=== PATIENT | male | born 1935 | race Caucasian/White ===

== ENCOUNTER 2016-11-25 11:41 | Inpatient (IN) | payer OTHER ==
--- NOTE | 2016-11-25 11:49 | CPEKG ---
Heart Rate: 59 RR Interval: 1017 P-R Interval: 228 QRSD Interval: 122 QT Interval: 436 QTC Interval: 432 P [place]: 41 QRS [place]: -63 T Wave [place]: 77 EKG Severity - ABNORMAL ECG - EKG Impression: SINUS RHYTHM EKG Impression: FIRST DEGREE AV BLOCK EKG Impression: NONSPECIFIC IVCD WITH LAD EKG Impression: LVH WITH SECONDARY REPOLARIZATION ABNORMALITY Electronically Signed By: Oumar Wall 25-Nov-2016 12:58:21
[2016-11-25] MEDS ORDERED: NS 1,000 ML IV ONE (11:52)
[2016-11-25] MEDS ORDERED: ASPIRIN 81 MG CHEWABLE TAB PO ONE (11:52)
[2016-11-25] MEDS ORDERED: ASPIRIN 81 MG CHEWABLE TAB ONE (11:53)
[2016-11-25] MEDS ORDERED: NITROGLYCERIN 0.4 MG BTL SL ONE ×2 (11:53→12:00)
[2016-11-25] MEDS ORDERED: METOPROLOL TARTRATE 5 MG/5 ML INJ IVP ONE (11:56)
[2016-11-25] MEDS ORDERED: METOPROLOL TARTRATE 5 MG/5 ML INJ ONE (11:57)
[2016-11-25 12:01] LABS: % IMMATURE GRANULYOCYTES 0.7 % (0.0-1.1); ABSOLUTE IMMATURE GRANULOCYTES 0.04 10^3/uL (0.00-0.10); ADD DIFF? NO; ADD MORPH? NO; ADD SCAN? NO; ATYPICAL LYMPHOCYTE FLAG 0 (0-99); FRAGMENT RBC FLAG 0 (0-99); HEMATOCRIT 47.6 % (40.0-51.0); HEMOGLOBIN 16.8 g/dL (13.7-17.5); LEFT SHIFT FLG 0 (0-99); LIPEMIA HEMOLYSIS FLAG 90 (0-99); MEAN CELL HEMOGLOBIN 32.2 pg (27.9-34.1); MEAN CELL HEMOGLOBIN CONCENTR. 35.3 g/dL (32.4-36.7); MEAN CELL VOLUME 91.4 fL (81.5-99.8); MEAN PLATELET VOLUME 9.6 fL (8.7-11.7); PLATELET CLUMPS FLAG 0 (0-99); PLATELET COUNT 187 10^3/uL (150-400); RED BLOOD CELL COUNT 5.21 10^6/uL (4.40-6.38)
[2016-11-25 12:12] LABS: APTT 25.6 SEC (23.0-38.0); INR 1.1 (0.83-1.16); PROTIME(PATIENT) 13.9 SEC (12.0-15.0)
[2016-11-25 12:13] LABS: ANION GAP 16 mEq/L (8-16); CALCIUM 9.6 mg/dL (8.5-10.4); CARBON DIOXIDE 21 mEq/l (22-31); CHLORIDE 105 mEq/L (97-110); CREATININE 1.2 mg/dL (0.7-1.3); GLOMERULAR FILTRATION RATE 58; GLUCOSE 96 mg/dL (70-100); SODIUM 142 mEq/L (134-144)
[2016-11-25] MEDS: NITROGLYCERIN 0.4 MG BTL SL PRN ×2 (12:15→12:18)
[2016-11-25] MEDS ORDERED: NITROGLYCERIN 2% 1 GM PACKET TP ONE (12:24)
[2016-11-25] MEDS ORDERED: NITROGLYCERIN 0.4 MG BTL SL PRN ×3 (12:24→17:05)
[2016-11-25 12:26] LABS: TROPONIN I < 0.012 ng/mL (0-0.034)
--- NOTE | 2016-11-25 12:41 | UCPHY ---
H & P Patient Type: Established Chief Complaint Nursing Narrative: 1 wk of Lt arm pain - last night dizzyness/ SOB - drove down from [facility] Time Seen by Provider: 11/25/16 11:45 HPI/ROS: This patient complains of left arm discomfort describes achy in nature intermittently over the past week fleeting episodes last for few minutes with no clear exacerbating factors. However last night he reports onset of study left arm pain that persists since early in the evening again with no exacerbating factors. He reports associated dizzy spells that he describes as lightheaded. He reports that this arm pain is similar to his pain prior to cardiac stent in 2002 with Jeff Wall. Since that time he has not had any significant cardiac symptoms until now. Denies any other associated symptoms with this episode. Currently he has 3/10 achy left arm pain ROS: No fevers or chills. No other constitutional symptoms HEENT: No complaints pulmonary: No shortness of breath no cough. Cardiovascular: He denies any heart palpitations. Currently not feeling lightheaded. No lower extremity swelling. No associated back pain or chest pain. GI: No nausea vomiting. Endocrine: No diaphoresis. : No complaints. 10 point ROS is otherwise negative. Source: Patient Exam Limitations: No limitations - Personal History Current Tetanus Diphtheria and Acellular Pertussis (TDAP): Yes - Medical/Surgical History Hx Asthma: No Hx Chronic Respiratory Disease: No Hx Diabetes: No Hx Cardiac Disease: Yes Hx Renal Disease: No Hx Cirrhosis: No Hx Alcoholism: No Hx HIV/AIDS: No Hx Splenectomy or Spleen Trauma: No Other PMH: PMH: HTN, high cholesterol,. PSH: cardiac stent 2002, upper aortic replacement 2004, - Family History Significant Family History: No pertinent family hx - Social History Smoking Status: Never smoked Alcohol Use: Occasionally Drug Use: None - Physical Exam Exam: General Appearance: Pleasant 81-year-old male appears younger than his stated age. Alert, no distress. Eyes: Pupils equal and round no pallor or injection. ENT, Mouth: Mucous membranes moist. Respiratory: There are no retractions, lungs are clear to auscultation. Cardiovascular: Regular rate and rhythm. No murmur gallop rub. No JVD no peripheral edema. He has midline sternotomy scar that is clean dry intact. Gastrointestinal: Abdomen is soft and nontender, no masses, bowel sounds normal. Neurological: Alert with no focal deficits. Skin: Warm and dry, no rashes. Musculoskeletal: Neck is supple nontender. Extremities are symmetrical, full range of motion. Psychiatric: Mood and affect are normal DIFFERENTIAL DIAGNOSIS: After history and physical exam differential diagnosis was considered for coronary syndrome, IL, your dissection, PE, GERD, musculoskeletal source of pain Constitutional: Initial Vital Signs Temperature (C) 37.2 C 11/25/16 11:49 Heart Rate 58 L 11/25/16 11:49 Respiratory Rate 18 11/25/16 11:49 Blood Pressure 163/89 H 11/25/16 11:49 O2 Sat (%) 97 11/25/16 11:49 O2 Delivery Mode Nasal Cannula O2 (L/minute) 2 Allergies/Adverse Reactions: No Known Allergies Allergy (Unverified 06/04/13 12:22) Home Medications: Medication Instructions Recorded Aspirin [Aspirin 81mg (*)] 81 mg PO DAILY 11/25/16 Losartan/Hydrochlorothiazide 1 each PO DAILY 11/25/16 [Hyzaar 100-12.5 Tablet] Multivitamins [Multivitamin (*)] 1 each PO DAILY 11/25/16 [place]-3 Fatty Acids [Fish Oil 1000 1,000 mg PO DAILY 11/25/16 mg (*)] Simvastatin [Zocor] 40 mg PO HS 11/25/16 Carvedilol [Coreg (*)] 6.25 mg PO BIDMEAL #60 tab 11/26/16 Prasugrel HCl [Effient 10mg (*)] 10 mg PO DAILY #30 tab 11/26/16 Medical Decision Making - Diagnostics EKG Interpretation: 12 lead EKG performed at 11:47 a.m. shortly after arrival indication anginal equivalent Sinus rhythm 59 First-degree AV block Acute ST abnormalities. Overall assessment sinus rhythm first-degree AV block LVH no significant interval change when compared to an EKG dated December 30, 2015 for complete read please refer to trace master 2nd EKG performed at 12:28 p.m. indication nitroglycerin with relief of anginal equivalent rule out interval change sinus rhythm at 77 Overall assessment: no acute interval change from initial EKG by my interpretation please refer to trace master for complete Imaging Results: AP portable chest x-ray: Negative for acute abnormalities by my interpretation. Mediastinum appears grossly normal Imaging: I viewed and interpreted images myself ED Course/Re-evaluation: IV, monitor, aspirin 324 Supple nitroglycerin 1 Q 5 minutes x3 with resolution of his left arm pain 0.5 inch nitropaste Single dose of Lopressor IV with mild bradycardia in the 50s. Subsequent doses held due to this. Discussed case with Nehal with [facility]. She requests that we hold on blood thinner on this patient admit to the hospitalist. he will consult for further workup and treatment. Spoke with the [id number] provider with the hospital service accepts patient for admission to Dr. Jenkins Discussion: Patient with history of known coronary artery disease and stent presents with anginal equivalent with relief from nitroglycerin here stable vital signs negative initial troponin warranting admission for further workup and treatment. Patient is pain-free and comfortable at 12:45 p.m. awaiting transfer to the hospital PCU - Data Points Laboratory Results: Laboratory Results 11/25/16 11:57 11/25/16 11:57 Medications Given: Discontinued Medications Aspirin (Aspirin) 324 mg PO EDNOW ONE Stop: 11/25/16 11:53 Last Admin: 11/25/16 11:57 Dose: 324 mg Aspirin Buffered (Aspirin Ec) 325 mg PO ONCALL ONE Stop: 11/25/16 15:04 Last Admin: 11/25/16 18:44 Dose: Not Given Aspirin Buffered (Aspirin Ec) 325 mg PO DAILY [facility] Stop: 05/25/17 08:59 Last Admin: 11/26/16 09:18 Dose: 325 mg Atorvastatin Calcium (Lipitor) 40 mg PO DAILY [facility] Stop: 05/25/17 08:59 Last Admin: 11/26/16 09:18 Dose: 40 mg Carvedilol (Coreg) 12.5 mg PO BIDMEAL [facility] Stop: 05/25/17 07:59 Last Admin: 11/26/16 09:17 Dose: 12.5 mg Diazepam (Valium) 5 mg PO ONCALL ONE Stop: 11/25/16 15:04 Last Admin: 11/25/16 18:44 Dose: Not Given Diphenhydramine HCl (Benadryl) 25 mg PO ONCALL ONE Stop: 11/25/16 15:04 Last Admin: 11/25/16 18:44 Dose: Not Given Enoxaparin Sodium (Lovenox) 40 mg SC DAILY KIKE Stop: 05/25/17 08:59 Last Admin: 11/26/16 09:18 Dose: 40 mg HCTZ/Losartan Potassium (Hyzaar 50/12.5) 1 tab PO DAILY KIKE Stop: 05/25/17 08:59 Last Admin: 11/26/16 09:17 Dose: 1 tab Losartan Potassium (Cozaar) 50 mg PO DAILY KIKE Stop: 05/25/17 08:59 Last Admin: 11/26/16 09:17 Dose: 50 mg Metoprolol Tartrate (Lopressor Injection) 5 mg IVP EDNOW ONE Stop: 11/25/16 11:57 Last Admin: 11/25/16 12:17 Dose: 3 mg Multivitamins (Tab-A-Mariam) 1 each PO DAILY KIKE Stop: 05/25/17 08:59 Last Admin: 11/26/16 09:17 Dose: 1 each Nitroglycerin (Nitrostat) 0.4 mg SL EDNOW ONE Stop: 11/25/16 12:01 Last Admin: 11/25/16 11:55 Dose: 1 tab Nitroglycerin (Nitrostat) 0.4 mg SL Q5M PRN PRN Reason: Chest Pain Stop: 11/25/16 12:19 Last Admin: 11/25/16 12:18 Dose: 0.4 mg Nitroglycerin (Nitro-Bid 2%) 0.5 inch TP EDNOW ONE Stop: 11/25/16 12:25 Last Admin: 11/25/16 12:28 Dose: 0.5 inch Nitroglycerin (Nitrostat) 0.4 mg SL EDNOW PRN PRN Reason: Chest Pain Stop: 11/27/16 12:25 Last Admin: 11/25/16 12:27 Dose: 0.4 mg [id number]-[id number] Ethyl Esters (Fish Oil) 1,000 mg PO DAILY KIKE Stop: 05/25/17 08:59 Last Admin: 11/26/16 09:18 Dose: 1,000 mg Potassium Chloride (Klor-Con) 10 - 40 meq PO ONCE ONE PRN Reason: Protocol Stop: 11/26/16 12:52 Last Admin: 11/26/16 13:28 Dose: 30 meq Prasugrel (Effient) 10 mg PO DAILY KIKE Stop: 05/25/17 08:59 Last Admin: 11/26/16 09:18 Dose: 10 mg Prasugrel (Effient) 60 mg PO ONCE ONE Stop: 11/25/16 17:15 Last Admin: 11/25/16 18:44 Dose: Not Given Departure - Departure Disposition: [facility] Inpatient Acute Clinical Impression: Unstable angina Condition: Fair - PQRS PQRS Measurement: 134: Depression screening and followup, PRIME MD-PHQ2 (12 years and older) Over the last 2 weeks, how often have you been bothered by any of the following problems? 1. Feeling down, depressed, or hopeless? 2. Little interest or pleasure in doing things? Patient answered no to both 1 and 2 130: Documentation of medications. Reviewed all patient medications, doses, route and frequency. 226: Do you smoke? [No.] 47: 65 and older: Advanced care planning. Patient does not have a surrogate decision maker. He is full code 51: 18 years old and older with diagnosis of COPD, spirometry performance. NA 52: 18 years old and older with COPD and symptoms of COPD or FEV1<60% predicted prescribed a B Agonist. NA
--- NOTE | 2016-11-25 12:47 | CPEKG ---
Heart Rate: 77 RR Interval: 779 P-R Interval: 240 QRSD Interval: 120 QT Interval: 404 QTC Interval: 458 P [place]: 43 QRS [place]: -66 T Wave [place]: 91 EKG Severity - ABNORMAL ECG - EKG Impression: SINUS RHYTHM EKG Impression: VENTRICULAR PREMATURE COMPLEX EKG Impression: FIRST DEGREE AV BLOCK EKG Impression: INCOMPLETE LEFT BUNDLE BRANCH BLOCK EKG Impression: PROBABLE LEFT VENTRICULAR HYPERTROPHY Electronically Signed By: Oumar Wall 25-Nov-2016 12:58:12
[2016-11-25] MEDS ORDERED: DIAZEPAM 5 MG TAB PO ONE (15:03)
[2016-11-25] MEDS ORDERED: ASPIRIN EC 325 MG TAB PO ONE (15:03)
[2016-11-25] MEDS ORDERED: TEMAZEPAM 15 MG CAP PO PRN (15:03)
[2016-11-25] MEDS ORDERED: ACETAMINOPHEN 325 MG TAB PO PRN (15:03)
[2016-11-25] MEDS ORDERED: diphenhydrAMINE 25 MG CAP PO ONE (15:03)
[2016-11-25] MEDS ORDERED: MIDAZOLAM 2 MG/2 ML VIAL ONE ×2 (15:14→16:29)
[2016-11-25] MEDS ORDERED: IOPAMIDOL (ISOVUE-370) 150 ML BTL IV ONE ×3 (15:14→16:32)
[2016-11-25] MEDS ORDERED: LIDOCAINE 1% 30 ML SDV ONE (15:14)
[2016-11-25] MEDS ORDERED: fentaNYL 100 MCG/2 ML INJ ONE ×2 (15:14→16:29)
[2016-11-25] MEDS ORDERED: FAMOTIDINE 20 MG TAB ONE (15:27)
[2016-11-25] MEDS ORDERED: BIVALIRUDIN 250 MG/5 ML VIAL IV ONE (16:05)
[2016-11-25] MEDS ORDERED: NITROGLYCERIN 1,500 MCG/15 ML VIAL MISC ONE (16:05)
[2016-11-25] MEDS ORDERED: HEPARIN 10,000 UNIT/10 ML MDV ONE (16:13)
--- NOTE | 2016-11-25 16:14 | GCON ---
[f rep st] CONSULTATION CARDIOLOGY CONSULTATION. HISTORY OF PRESENT ILLNESS: The patient was admitted to the hospital with left arm pain. He has been active, doing the things he always does. He has been getting discomfort for a month intermittently. It is on and off all day long for this month. It is 5/10 when it is bad. It stops on its own. Resting may help it a little bit. Stress may make it worse. It is very similar to the left arm discomfort that he had prior to his stent in 2002. At that time, however, his symptoms when I investigated further were more bilateral, and this time it is on the left side only. It is not worse with position or time of day or food. He has not been feeling particularly well. He has been, at times, very active, and this pain has not gotten worse so the story is a little bit confusing. He did say that he was also dizzy yesterday. This discomfort can also happen at night when he is at rest. He has a history of coronary artery disease. CARDIAC RISK FACTORS: His cardiac risk factors are positive for hypertension, for hyperlipidemia, for known coronary disease with a stent years ago, and for a family history of premature coronary disease. Cardiac risk factors are negative for any recent smoking, for hyperuricemia, for known myocardial infarction or diabetes mellitus. His vascular disease history also includes an aortic aneurysm repair by Dr. Harrison Lockwood in 2004. He has no history of orthopnea, PND, dyspnea on exertion. He has no peripheral edema, no early satiety. No significant weight gain. He is a very active gentleman and takes good care of himself. He does not have a history of dysuria, frequency, pyuria. He has no hemoptysis. No trauma to the head, neck, or chest. He has no rashes, fevers, or chills. No lightheadedness or dizziness. No focal neurologic deficits. He has been taking his medications. His appetite has been good. MEDICATIONS: Aspirin, carvedilol, losartan, multivitamins, simvastatin. ALLERGIES: None. SURGICAL HISTORY: He had an upper aortic root replacement in 2004. REVIEW OF SYSTEMS: A 15-point review of systems negative except as noted above. SOCIAL HISTORY: He was born in [place], [place]. 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 He has been in [place] since 1996. He lives alone. His a year and a half ago. He has 6 children all over the place. He is very active. He does treadmill, pushups, sit-ups. He does not smoke. Does not drink significant amounts of alcohol. PHYSICAL EXAMINATION: VITAL SIGNS: His blood pressure is 140/75, respiratory rate is 12. He is sitting comfortably in a hospital bed with a heart rate of 58. He is afebrile. HEENT: Pupils are equal, round, and reactive. Mucous membranes and mouth moist. NECK: Supple. CARDIOVASCULAR: S1, S2. Soft systolic murmur left sternal border. No diastolic murmur. No S3, S4. No rubs. LUNGS: Rhonchi bilaterally. No rales, wheezing, or dullness. ABDOMEN: Soft, nontender, without masses. EXTREMITIES: No edema, inflammation, or ulceration. SKIN: Reveals age-related changes. CVA: No tenderness. PSYCH: No obvious anxiety or depression. NEURO: 2-12 grossly normal. Motor and sensory intact. EKG shows left bundle-branch block, first-degree block, PVCs. LABS: Show white count 6.0, hematocrit is 47, platelets 187. He has a high neutrophil count. Sodium 142, potassium 4.0, chloride 105, CO2 of 21, BUN 34, creatinine 1.2. BNP 240. Troponin 0.012. ASSESSMENT AND PLAN: 1. Coronary artery disease. The patient has had coronary artery disease with stenting in 2002. He has severe vascular disease. He has dyslipidemia. He is hypertensive. He has symptoms similar to what he had prior to his stenting. At that time, he had bilateral arm pain. Now he has only 1-sided arm pain, and the story is not typical for angina and is not clearly worse with exertion. Does not clearly just go away with rest, so it may well be musculoskeletal. I do not believe it is related to his aneurysm or his aneurysm repair. However, we cannot be sure it is not coronary artery disease. I talked to him about nuclear imaging studies if he developed no elevated troponins and his EKG was unchanged from the past as well as the current one we have. He understands the options on this and wants to proceed directly to coronary angiography. We will do this angiogram and proceed from there. We reviewed prevention. He has severe coronary artery disease and may well need very significant intervention. 2. Ascending aortic aneurysm. He has had an ascending aortic aneurysm repaired by Dr. Lockwood according to him. We will check his aorta while we are doing the study depending on how the study goes and what we find. 3. Hyperlipidemia. 4. Hypertension. 5. Family history of premature coronary disease. He has many risk factors that would accelerate his getting coronary artery disease at a young age. We have reviewed prevention. At this time, we will do a coronary angiogram. If this study is negative, we will ponder what other causes might be giving him this problem of his arm discomfort. It certainly could be musculoskeletal, and that would be the most common possible etiology for what he has. There is nothing to suggest pulmonary embolic disease. His pulses are full and equal. There is nothing to suggest significant aortic disease right at this time. There is nothing to suggest other significant pulmonary or GI pathology right now. All of his questions have been answered. I have talked to the hospitalist about this case, and we will proceed to angiography. /[id number]/MODL MTDD
[2016-11-25] MEDS ORDERED: ATROPINE SULFATE 1 MG/10 ML SYR IVP PRN (17:05)
[2016-11-25] MEDS ORDERED: ONDANSETRON 4 MG/2 ML VIAL IVP PRN (17:05)
[2016-11-25] MEDS ORDERED: HYDROCODONE/APAP 5/325 TAB PO PRN (17:05)
[2016-11-25] MEDS ORDERED: OXYCODONE/APAP 5/325 TAB PO PRN (17:05)
[2016-11-25] MEDS ORDERED: PRASUGREL HCL 10 MG TAB ONE (17:06)
[2016-11-25] MEDS ORDERED: PRASUGREL HCL 10 MG TAB PO ONE (17:14)
--- NOTE | 2016-11-25 17:14 | PDCTREPORT ---
Cardiothoracic Procedure Rpt Cardiothoracic Procedure Report: I am asked by partner Dr. Soham Kenyon to perform PCI of the distal circumflex artery and mid LAD. After reviewing diagnostic angiograms it was elected to proceed. Patient was anticoagulated with heparin. Therapeutic ACT was confirmed. Multiple guides were attempted but due to tortuosity would not fit. For details please see attached computer report. Ultimately a 6 [place] Q 4 guide was used to sub selectively intubate the left main coronary. A 0.014 luge wire was used to enter the vessel and placed in the distal circumflex. This allowed the guiding catheter to be further seated coaxial E. The lesion was primarily stented with a 3.0 x 16 mm synergy stent. A 2.014nd luge wire was then placed in the LAD. A 3.0 by 20 mm synergy stent was placed across the mid LAD stenosis and deployed using a single inflation. Repeat angiogram showed SARA grade 3 flow,both wires were withdrawn. Peripheral angiogram revealed a limited dissection above the femoral sheath. It was elected to proceed with a manual hold to close the arteriotomy. Final diagnosis: Successful PCI and stenting of the distal circumflex and mid LAD. Patient Problems: Problems Problem Status Onset Abdominal pain Acute Cholecystitis Acute
--- NOTE | 2016-11-25 17:49 | CPIP ---
[f rep st] INVASIVE CARDIAC PROCEDURE DATE OF PROCEDURE: 11/25/2016 PROCEDURES PERFORMED: Left heart catheterization, left ventriculogram, right and left coronary benjamin riogram. COMPLICATIONS: None. CONDITION AT THE END OF THE STUDY: Excellent. ESTIMATED BLOOD LOSS: 10 cc. INDICATIONS: The patient has developed rest angina. His angina is left arm discomfort. It is wors e with exertion. It has been getting worse over the last month and it is coming on a daily basis at this point in time. He has no heart failure. He has not had stress testing. He has known coronary artery disease, having received a stent in his LAD in 2002. He has known peripheral vascular disease with ascending aortic aneurysm repair by Dr. Harrison Lockwood i n 2004. He has no prior history of myocardial infarction. FINDINGS ANGIOGRAPHY: Left main coronary artery is normal. LAD has proximal stent. This stent goes into the mid section. The mid left anterior descending art berny has a 75% stenosis. The distal vessel has intimal disease only. The circumflex coronary artery is a very large codominant vessel, and the distal circumflex has an 85% discrete stenosis. The right coronary artery has intimal disease present in the 20% to 30% mid and proximal regions. LEFT HEART CATHETERIZATION: Left ventricular end-diastolic pressure 12 mmHg. No aortic stenosis. LEFT VENTRICULOGRAM: Normal left ventricular systolic function. No regional wall motion abnormalities. Normal left ventricular chamber dimension. No severe mitral regurgitation. I have discussed with the patient proceeding with intervention should we find high-grade disease and he has approved all that preoperatively. We will have a PCI consultation. The case has been discussed with the hospitalist. /[id number]/MODL
--- NOTE | 2016-11-25 17:55 | CPEKG ---
Heart Rate: 50 RR Interval: 1200 P-R Interval: 264 QRSD Interval: 128 QT Interval: 464 QTC Interval: 424 P [place]: 20 QRS [place]: -61 T Wave [place]: 46 EKG Severity - ABNORMAL ECG - EKG Impression: SINUS RHYTHM EKG Impression: FIRST DEGREE AV BLOCK EKG Impression: LEFT BUNDLE BRANCH BLOCK Electronically Signed By: Marvin Watson 26-Nov-2016 06:23:06
--- NOTE | 2016-11-25 20:25 | GHP ---
[f rep st] HISTORY AND PHYSICAL DATE OF ADMISSION: 11/25/2016 CHIEF COMPLAINT: Left arm pain and dizziness. HISTORY OF PRESENT ILLNESS: This is an 81-year-old male, with a history of coronary artery disease with stent placement in 2002, hypertension, hyperlipidemia, who presented to the Urgent Care today w ith left arm pain and dizziness. Pain has been intermittent in left upper arm for the past month. Described as dull and achy in quality and rated 4 to 5 out of 10. It lasts for an hour at most and then self resolves. He has been experiencing associated dizziness lasting 1-2 minutes throughout , that is described as room spinning. This is associated with some diaphoresis. PAST MEDICAL HISTORY: 1. Hypertension. 2. Dyslipidemia. 3. Coronary artery disease with stent in 2002. 4. Abdominal aortic aneurysm. 5. Benign prostatic hypertrophy. 6. Hospitalization in June of 2013 for Escherichia coli bacteremia related to cholecystitis. PAST SURGICAL HISTORY: 1. Angioplasty and stent placement. 2. AAA repair. 3. Cholecystectomy. MEDICATIONS: Home medications were reviewed, refer to [facility] for details. ALLERGIES: No known drug allergies. SOCIAL HISTORY: Drinks 1-2 glasses of wine per night. He denies any tobacco or illicit drug use. FAMILY HISTORY: Reviewed and noncontributory. REVIEW OF SYSTEMS: A comprehensive 10-point review of systems was done and is negative, except for as mentioned in the HPI. PHYSICAL EXAM: VITAL SIGNS: Blood pressure 125/72, pulse 60, respiratory rate 17, O2 saturation 98 % on room air, temperature afebrile. GENERAL: No acute distress. HEART: S1 and S2. LUNGS: Lisa r. ABDOMEN: Soft. Nontender, nondistended. No guarding or rebound tenderness, normoactive bowel sounds. EXTREMITIES: No clubbing or cyanosis. NEUROLOGIC: Cranial nerves II-XII grossly intact. No focal motor or sensory deficits. Right groin puncture sites have a catheter in place, without a ny signs of active bleeding, induration or fluctuance. DIAGNOSTICS: WBC of 6, hemoglobin 16.8, hematocrit 47.6, platelets 187. Sodium 142, potassium 4, c hloride 105, CO2 of 21, BUN 34, creatinine 1.2, glucose 96, BNP was 240. Initial troponin was negat jeannine. Visualized and personally interpreted his EKG done at 12:27 today, showed sinus rhythm, rate 7 7 beats per minute, with incomplete left bundle branch block, and ventricular premature complexes. Cardiac catheterization notes from Dr. Kenyon as well as Dr. Tanner were reviewed. ASSESSMENT AND PLAN: This is an 81-year-old male who presented to the Urgent Care earlier today wit h left arm pain and dizziness, found to have: 1. Acute coronary syndrome status post successful PCI and stenting of the distal circumflex and mid LAD. Plan: The patient is currently resting comfortably in the step-down unit. He is not complai galen of chest pain. Continue current medical management per the Cardiology team. 2. Reported vertigo, now resolved, possibly related to above versus other peripheral causes of vert igo. Plan: Once the patient is recovered from his cardiac catheterization we will ask my covering partners to evaluate for BPPV by doing the Hallpike procedure. procedure, same maneuver. 3. History of hypertension. Plan: To continue home blood pressure medications and monitor. 4. History of dyslipidemia. Plan: The patient takes 40 mg of simvastatin at home, but has been st arted on 40 mg of atorvastatin, which will be continued. /[id number]/MODL
[2016-11-26 01:35] LABS: % IMMATURE GRANULYOCYTES 0.2 % (0.0-1.1); ABSOLUTE IMMATURE GRANULOCYTES 0.01 10^3/uL (0.00-0.10); ADD DIFF? NO; ADD MORPH? NO; ADD SCAN? NO; ATYPICAL LYMPHOCYTE FLAG 20 (0-99); FRAGMENT RBC FLAG 0 (0-99); HEMATOCRIT 39.4 % (40.0-51.0); HEMOGLOBIN 13.6 g/dL (13.7-17.5); LEFT SHIFT FLG 0 (0-99); LIPEMIA HEMOLYSIS FLAG 90 (0-99); MEAN CELL HEMOGLOBIN 32.3 pg (27.9-34.1); MEAN CELL HEMOGLOBIN CONCENTR. 34.5 g/dL (32.4-36.7); MEAN CELL VOLUME 93.6 fL (81.5-99.8); MEAN PLATELET VOLUME 9.6 fL (8.7-11.7); PLATELET CLUMPS FLAG 10 (0-99); PLATELET COUNT 136 10^3/uL (150-400); RED BLOOD CELL COUNT 4.21 10^6/uL (4.40-6.38); RED CELL DISTRIBUTION WIDTH 13.4 % (11.5-15.2)
[2016-11-26 05:28] LABS: ALBUMIN 2.7 g/dL (3.5-5.0); ANION GAP 6 mEq/L (8-16); ASPARTATE AMINOTRANSFERASE 20 IU/L (17-59); BILIRUBIN,TOTAL 2.4 mg/dL (0.1-1.4); CALCIUM 7.6 mg/dL (8.5-10.4); CARBON DIOXIDE 20 mEq/l (22-31); CHLORIDE 114 mEq/L (97-110); GLOMERULAR FILTRATION RATE > 60; GLUCOSE 92 mg/dL (70-100); LACTATE DEHYDROGENASE 419 IU/L (313-618); MAGNESIUM 1.8 mg/dL (1.6-2.3); POTASSIUM 3.6 mEq/L (3.5-5.2); SODIUM 140 mEq/L (134-144)
[2016-11-26 06:33] LABS: BILIRUBIN-CONJUGATED 0.4 mg/dL (0.0-0.5)
[2016-11-26] MEDS ORDERED: CARVEDILOL 6.25 MG TAB PO SCH (08:00)
--- NOTE | 2016-11-26 08:45 | CPEKG ---
Heart Rate: 53 RR Interval: 1132 P-R Interval: 248 QRSD Interval: 124 QT Interval: 452 QTC Interval: 425 P [place]: 27 QRS [place]: -58 T Wave [place]: 39 EKG Severity - ABNORMAL ECG - EKG Impression: SINUS RHYTHM EKG Impression: FIRST DEGREE AV BLOCK EKG Impression: LEFT BUNDLE BRANCH BLOCK Electronically Signed By: Marvin Watson 26-Nov-2016 14:36:51
[2016-11-26 08:52] VITALS: TEMP 98.2
[2016-11-26] MEDS ORDERED: ASPIRIN EC 325 MG TAB PO SCH (09:00)
[2016-11-26] MEDS ORDERED: PRASUGREL HCL 10 MG TAB PO SCH (09:00)
[2016-11-26] MEDS ORDERED: ATORVASTATIN CALCIUM 40 MG TAB PO SCH (09:00)
[2016-11-26] MEDS ORDERED: LOSARTAN/HCTZ 50/12.5 1 TAB PO SCH (09:00)
[2016-11-26] MEDS ORDERED: MULTIVITAMINS 1 EACH TAB PO SCH (09:00)
[2016-11-26] MEDS ORDERED: OMEGA-3 FATTY ACIDS 1,000 MG CAP PO SCH (09:00)
[2016-11-26] MEDS ORDERED: LOSARTAN POTASSIUM 50 MG TAB PO SCH (09:00)
[2016-11-26] MEDS ORDERED: ENOXAPARIN 40 MG/0.4 ML SYR SC SCH (09:00)
[2016-11-26] MEDS ORDERED: PROTOCOL MAGNESIUM 1 DOSE IV PRN (10:25)
[2016-11-26] MEDS ORDERED: PROTOCOL POTASSIUM 1 DOSE MISC PRN ×2 (10:25→11:40)
--- NOTE | 2016-11-26 10:34 | ECHO ---
[id number] + + [address] : : [place] [address] : : [phone] + + Adult Echocardiographic Report + -------+ :Name: RAFA BRINK RStudy Date: 11/26/2016 07:50 AM BP: 121/61 mmH g : : Hospital Admission Number: [id number] Locati on: 247: :: 1935 Gender: Male Height: 69 in : :Age: 81 yrs Race: WH Weight: 188 lb : :Reason For Study: Eval LV Fx : : BSA: 2.0 meter s2 : :History: COPD, SOB : + -------+ MMode/2D Measurements \T\ Calculations IVSd: 0.94 cm LVIDd: 4.6 cm FS: 44.8 % Ao root diam: 3.7 cm LVPWd: 1.2 cm LVIDs: 2.5 cm EDV(Teich): 97.3 ml ACS: 1.5 cm ESV(Teich): 23.2 ml EF(Teich): 76.1 % LVOT diam: 2.1 cm LVOT area: 3.5 cm2 Normal Measurement Values: + + :LVIDd (3.5-5.7cm) IVSd (0.6-1.1cm) LVPWd (0.6-1.1cm) Aortic Root (2.0-3.7cm)Left Atrium (1.5-4.0cm): :LV Vol(d) (76-115ml) LV Vol(s) (29-48ml) Ejec Fraction (50-65%)PV Phil (0.6- 1.2m/s) TV Phil (0.4-1.0m/s) : :MV E Phil (0.8-1.0m/s)MV A Phil (0.3-1.0m/s)LVOT Phil (0.7-1.2m/s) Asc Ao Phil ( 0.9-1.8m/s) : + + Doppler Measurements \T\ Calculations MV E max phil: Ao mean P.3 mmHg LV V1 max: SV(LVOT): 46.9 cm/sec Ao V2 mean: 67.1 cm/sec 62.6 ml MV A max phil: 82.2 cm/sec LV V1 max P.3 cm/sec Ao V2 VTI: 26.6 cm 1.8 mmHg MV E/A: 0.82 LV V1 mean PG: KYLAH(I,D): 2.4 cm2 1.1 mmHg LV V1 mean: 48.9 cm/sec LV V1 VTI: 18.1 cm PA V2 max: TR max phil: 62.7 cm/sec 184.2 cm/sec PA max P.6 mmHg TR max P.6 mmHg RAP systole: 5.0 mmHg RVSP(TR): 18.6 mmHg Left Ventricle The left ventricle is normal in size. There is normal left ventricular wall thickness. The left ventricular ejection fraction is normal. There is Doppler evidence for diastolic dysfunction. Ejection Fraction = 77%. The left ventricular wall motion is normal. Right Ventricle The right ventricle is normal in size and function. Atria The left atrial size is normal. Right atrium is small. Mitral Valve The mitral valve is normal in structure and function. There is no evidence of mitral valve prolapse. There is no mitral valve stenosis. There is trace to mild mitral regurgitation. Tricuspid Valve There is trace to mild tricuspid regurgitation. Right ventricular systolic pressure is normal. Aortic Valve Mild Aortic Valve Calcification. There is no aortic stenosis. There is no aortic insufficiency. Pulmonic Valve The pulmonic valve is normal in structure and function. There is no pulmonic valvular regurgitation. Great Vessels The aortic root is normal size. Pericardium/Pleural There is no pericardial effusion. Conclusion A complete two-dimensional transthoracic echocardiogram was performed (2D, M-mode, Doppler and color flow Doppler). The left ventricular ejection fraction is normal. There is Doppler evidence for diastolic dysfunction. Ejection Fraction = 77%. The left ventricular wall motion is normal. The right ventricle is normal in size and function. There is trace to mild mitral regurgitation. There is trace to mild tricuspid regurgitation. Right ventricular systolic pressure is normal. There is no aortic stenosis. Mild Aortic Valve Calcification There is no pericardial effusion. Off axis views obtained due to COPD Final Reading Physician: Spencer Izaguirre signed on 11/26/2016 10:32 AM Ordering Physician: Basil Kenyon Performed By: Melvin Beyer RDCS
[2016-11-26 12:22] LABS: MAGNESIUM 1.8 mg/dL (1.6-2.3); POTASSIUM 3.8 mEq/L (3.5-5.2)
[2016-11-26] MEDS ORDERED: POTASSIUM CL 10 MEQ TAB PO ONE (12:51)
[2016-11-26 12:56] VITALS: BP 116/56; PULSE 61; RESP 20; O2SAT 98
--- NOTE | 2016-11-26 16:49 | SOAPPROG ---
EDUARDO Progress Note Assessment/Plan: Assessment: 1. Coronary artery disease 2. Dyslipidemia 3. Weight 4. Shortness of breath. He feels very good after his stenting of the LAD and circumflex. Groin is excellent. There is no significant hematoma. He is not having any other new problems right at this time. He does not feel lightheaded or dizzy. He did have low arteries yesterday overnight but he has been perfectly fine since that time. Recommendation is for him to get up and walk around if he continues to feel well he can be discharged today. He really wants to leave today and does not sound like he is going to stay under any circumstances since he feels so good. Have answered all his questions We would like him to go to cardiac rehab. We have discussed prevention at length. Plan: 11/26/16 16:48 Subjective: Has done very well post angiography. He has no chest pain He has no fevers or chills He has no orthopnea or PND. He is about to get up and walk around. Last night his heart rate fell twice he felt somewhat lightheaded that has not happened since that time. He has no dizziness No syncope No further ago. He feels strong. He wants to go home right away Objective: Vital Signs Temp Pulse Resp BP Pulse Ox 36.8 C 61 20 116/56 L 98 11/26/16 12:00 11/26/16 12:00 11/26/16 12:00 11/26/16 12:00 11/26/16 12:00 Laboratory Results 11/26/16 01:25 11/26/16 11:50 11/25/16 11/26/16 11/27/16 05:59 05:59 05:59 Intake Total 1400 Output Total 700 Balance 700 PT 13.9 SEC (12.0-15.0) 11/25/16 11:57 INR 1.10 (0.83-1.16) 11/25/16 11:57 Physical Exam - Physical Exam General Appearance: alert, no apparent distress Neck: supple Respiratory: rhonchi Cardiac/Chest: regular rate, rhythm, systolic murmur Abdomen: non-tender, soft, No organomegaly Skin: normal color, warm/dry Extremities: normal range of motion, non-tender Neuro/Psych: no motor/sensory deficits, normal mood/affect ICD10 Worksheet Patient Problems: Problems Problem Status Onset Abdominal pain Acute Cholecystitis Acute
--- NOTE | 2016-11-26 19:09 | GDS ---
[f rep st] DISCHARGE SUMMARY DISCHARGE DIAGNOSES: 1. Acute coronary syndrome/unstable angina status post stents to the distal circumflex and mid left anterior descending. 2. Hypertension. HISTORY: The patient is an 81-year-old male with coronary disease and a stent in 2002. Presented t o urgent care with left arm pain and dizziness. Initial troponin and EKG were negative and stress t esting versus cardiac catheterization were offered. He desired to proceed with cardiac catheterizat ion and was found to have significant stenoses of the LAD and distal circumflex. These were both pierce ccessfully stented by Dr. Tanner. Overnight, he did have some severe bradycardic episodes which w ere felt by Cardiology to be likely transient. At the time of discharge, he is feeling very well an d okay for discharge home. He will need to remain on antiplatelet for 1 year. I will reduce his be ta-ryan given these bradycardia episodes that were noted here in the hospital. DISCHARGE MEDICATIONS: Please see computerized record for full detailed list. New medications: 1. Coreg reduced to 6.25 mg p.o. b.i.d. 2. Effient 10 mg p.o. daily. ADDITIONAL DISCHARGE INSTRUCTIONS: 1. Follow up with [facility]. 2. Continue Effient for 1 year. 3. Cardiac rehab at [facility] recommended. Less than 30 minutes' time was spent arranging this discharge. Patient seen and examined by me on t day of discharge. /[id number]/MODL
== END 2016-11-26 13:42 | disposition home or self-care (01) | DRG 247 ==
LOC: CED 11:41 → CEDHOLD 12:45 → F2W 14:10 → F2N 18:35
PROVIDERS: ADMIT Family Medicine; ATTEND Family Medicine
PROC: 027034Z Dilation of Coronary Artery, One Artery with Drug-eluting Intraluminal Device, Percutaneous Approach (ICD-10-PCS; principal; 2016-11-25)
PROC: B2151ZZ Fluoroscopy of Left Heart using Low Osmolar Contrast (ICD-10-PCS; 2016-11-25)
PROC: 4A023N7 Measurement of Cardiac Sampling and Pressure, Left Heart, Percutaneous Approach (ICD-10-PCS; 2016-11-25)
PROC: B2111ZZ Fluoroscopy of Multiple Coronary Arteries using Low Osmolar Contrast (ICD-10-PCS; 2016-11-25)
DX: I25.110 Atherosclerotic heart disease of native coronary artery with unstable angina pectoris (principal); I10 Essential (primary) hypertension; E78.5 Hyperlipidemia, unspecified; Z95.5 Presence of coronary angioplasty implant and graft
CPT/HCPCS: 71010-PO; 80048-PO; 83880-PO; 84484-PO; 85025-PO; 85610-PO; 85730-PO; 96361-PO; 96374-PO; C1769; C1874; C1887; C9600; G0463-PO; J0461; J0583; J1644; J1650; J2250; J3010; Q9967